=== PATIENT | female | born 1980 | race African-American/Black ===

== ENCOUNTER 2018-12-21 02:14 | Emergency (ER) | payer OTHER ==
[~2018-12-21] VITALS: Ht 170.2 cm; Wt 68.0 kg
[2018-12-21 02:16] VITALS: BP 142/91
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
[2018-12-21] MEDS ORDERED: TRAM50TA PO (03:38)
[2018-12-21] MEDS ORDERED: ORPH100T PO (03:38)
[2018-12-21] MEDS ORDERED: DICL50TA4 PO (03:38)
== END 2018-12-21 03:56 | disposition home or self-care (01) ==
LOC: ER 02:14
DX: S16.1XXA Strain of muscle, fascia and tendon at neck level, initial encounter (principal); S29.012A Strain of muscle and tendon of back wall of thorax, initial encounter; R51 Headache; J45.909 Unspecified asthma, uncomplicated; V49.49XA Driver injured in collision with other motor vehicles in traffic accident, initial encounter; Y92.488 Other paved roadways as the place of occurrence of the external cause; Y93.89 Activity, other specified; Y99.8 Other external cause status
CPT/HCPCS: 70450; 72125; 72128; 81025; 99284-25